=== PATIENT | female | born 1935 | race Caucasian/White ===

== ENCOUNTER → 2017-05-02 | Outpatient (REF) | LOC: ZLAB.WCH 11:00 | DX: Z01.89 Encounter for other specified special examinations (principal) ==

== ENCOUNTER → 2020-02-16 | Outpatient (CLI) | payer MEDICARE | LOC: COL.RAD 10:48 | DX: E87.1 Hypo-osmolality and hyponatremia (principal); J44.1 Chronic obstructive pulmonary disease with (acute) exacerbation; E27.8 Other specified disorders of adrenal gland; Z72.0 Tobacco use | CPT/HCPCS: Q9967 ==

== ENCOUNTER → 2020-04-10 | Outpatient (CLI) | payer MEDICARE | LOC: COL.PUL 11:08 | DX: C34.32 Malignant neoplasm of lower lobe, left bronchus or lung (principal); I10 Essential (primary) hypertension; J44.9 Chronic obstructive pulmonary disease, unspecified; F17.210 Nicotine dependence, cigarettes, uncomplicated ==